=== PATIENT | male | born 1955 | race Caucasian/White ===

== ENCOUNTER 2018-01-15 11:34 | Emergency (ER) | payer MEDICAID, OTHER ==
[~2018-01-15] VITALS: Ht 172.7 cm; Wt 81.6 kg
[2018-01-15] MEDS ORDERED: ASPI81TA31 PO (11:39)
--- NOTE | 2018-01-15 11:54 | NUR ---
[employer] officers at the bedside for pt's report. Pt is awake a/o x4 and verbally responsive.
--- NOTE | 2018-01-15 12:36 | NUR ---
pt resting in bed, awaiting to be seen by .
--- NOTE | 2018-01-15 14:30 | NUR ---
Patient discharged to home in stable conditon. Written and verbal after care instructions given. Patient verbalizes understanding of instructions.pt walks in steady gait.
[2018-01-15 14:54] VITALS: BP 132/88
== END 2018-01-15 14:30 | disposition home or self-care (01) ==
LOC: ER 11:35
DX: S16.1XXA Strain of muscle, fascia and tendon at neck level, initial encounter (principal); S39.012A Strain of muscle, fascia and tendon of lower back, initial encounter; I10 Essential (primary) hypertension; Z79.82 Long term (current) use of aspirin; V49.49XA Driver injured in collision with other motor vehicles in traffic accident, initial encounter; Y93.89 Activity, other specified; Y92.89 Other specified places as the place of occurrence of the external cause; Y99.8 Other external cause status
CPT/HCPCS: 72125; 72131; A4663